=== PATIENT | female | born 1985 | race Caucasian/White ===

== ENCOUNTER 2021-07-11 17:18 | Emergency (ER) | payer OTHER, SELFPAY ==
[2021-07-11 17:28] VITALS: BP 131/85; PULSE 89; RESP 16; TEMP 36.4; O2SAT 100
--- NOTE | 2021-07-11 17:29 | ED.URI ---
HPI - URI/Sore Throat General Chief Complaint: Upper Respiratory Infection Stated Complaint: Cough/Chest Congestion Time Seen by Provider: 07/11/21 17:29 Source: patient and RN notes reviewed History of Present Illness HPI Narrative: Patient is a 36-year-old female who presents the urgent care with complaints of chest congestion and cough. Patient states the cough is keeping her up at night and is mostly nonproductive. Patient states symptoms started on Thursday and she has been fever free since Thursday. Patient also reports of a runny nose and intermittent coughing fits. Patient has been taking TheraFlu and DayQuil/NyQuil for her symptoms. Patient has been Covid vaccinated and denies of any recent exposures. No other acute complaints. No acute distress noted. Patient read the plan of care. Some parts of this dictation were generated by voice recognition software and may contain typographical and/or grammatical inaccuracies. Related Data Allergies Allergy/AdvReac Type Severity Reaction Status Date / Time No Known Allergies Allergy Verified 07/11/21 17:37 Review of Systems Review of Systems: CONSTITUTIONAL: Denies fever, chills, or sweats. EYES: Denies visual changes, redness, or discharge. ENT: Reports of rhinorrhea CARDIOVASCULAR: Denies chest pain, palpitations, or edema. RESPIRATORY: Reports of deep mostly nonproductive cough with coughing fits and chest congestion GASTROINTESTINAL: Denies abdominal pain, nausea, vomiting, or diarrhea. GENITOURINARY: Denies dysuria or hematuria. SKIN: Denies rash or itching. MUSCULOSKELETAL: Denies back pain, joint pain, or myalgia. NEUROLOGIC: Denies headache, numbness, or weakness. All other systems reviewed are negative, except as documented in HPI. PMFSH Comments At the time of my signature, I reviewed and agree with the nursing past medical, surgical, social, and family history. There is no relevant family history pertinent to the patient complaint. Exam Narrative: GENERAL: This is a well-nourished, well-developed patient, in no apparent distress. HEAD: normocephalic, atraumatic. EYES: PERRL. Sclera clear/white. Vision is grossly intact. EARS: External ears normal, auditory canals clear and without drainage, TMs normal without perforation. Hearing grossly intact. NOSE: External nose normal with no obvious nasal discharge, nares without redness, clear rhinorrhea. THROAT: Mucous membranes moist, posterior pharynx clear. Mild postnasal drainage NECK: Neck supple CARDIOVASCULAR: Regular rate and rhythm without murmurs, gallops, or rubs. RESPIRATORY: Harsh cough noted on exam, clear to auscultation. Breath sounds equal bilaterally. No wheezes, rales, or rhonchi. SKIN: warm, intact with no suspicious lesions or rash, good texture and turgor. NEURO: awake, alert, and oriented to person, place and time. There were no obvious focal neurologic abnormalities. EXTREMITIES: No clubbing, cyanosis, or edema. Course Vital Signs Vital signs: Vital Signs Temperature 97.6 F 07/11/21 17:28 Pulse Rate 89 07/11/21 17:28 Respiratory Rate 16 07/11/21 17:28 Blood Pressure 131/85 07/11/21 17:28 Pulse Oximetry 100 07/11/21 17:28 Temperature 97.6 F 07/11/21 17:28 Pulse Rate 89 07/11/21 17:28 Respiratory Rate 16 07/11/21 17:28 Blood Pressure 131/85 07/11/21 17:28 Pulse Oximetry 100 07/11/21 17:28 Reviewed MDM - URI/Sore Throat MDM Narrative Medical decision making narrative: Advised the patient to complete the oral steroid regimen as prescribed. Be sure to eat and drink with the medication. Use the cough syrup prior to bedtime as needed. May use Tessalon Perles during the day as needed for nonproductive cough. Continue daily antihistamine such as Claritin or Zyrtec in conjunction with Flonase nasal spray. If you develop any increase in symptoms associated with difficulty breathing or chest pain?go to the emergency room. Follow-up with your PCP within 2 to 5 days
== END 2021-07-11 17:56 | disposition home or self-care (01) ==
PROVIDERS: Emergency Provider Nurse Practitioner Family
DX: J40 Bronchitis, not specified as acute or chronic (principal)
CPT/HCPCS: 99213; G0463

== ENCOUNTER 2022-03-21 17:52 | Emergency (ER) | payer OTHER, SELFPAY ==
--- NOTE | 2022-03-21 17:53 | ED.SKABFB ---
HPI - Skin/Abscess/Foreign Bdy General Chief complaint: Skin/Abscess/Foreign Body Stated complaint: Rash Time Seen by Provider: 03/21/22 17:53 Source: patient and RN notes reviewed History of Present Illness HPI narrative: Patient is a 37-year-old female who presents the urgent care with complaints of a rash that started last night. Patient states that she works for [employer] and believes she may have gotten into something. Patient states that it has been worse since she has been out in the heat all day. States that she is use the triamcinolone cream 1 time, since picking to her PCP today, and has not taken any antihistamines for her itch. States that it started on the arms on her right hand and is now on the buttocks and back. No other acute complaints. No acute distress noted. Patient aware of the plan of care. Some parts of this dictation were generated by voice recognition software and may contain typographical and/or grammatical inaccuracies. Related Data Home Medications Medication Instructions Recorded Confirmed ibuprofen 800 mg tablet 800 mg PO Q6H PRN Migraine Headache 03/21/22 03/21/22 oxybutynin chloride 5 mg tablet 5 mg PO DAILY 03/21/22 03/21/22 triamcinolone acetonide 0.1 % 1 applic topical TID 03/21/22 03/21/22 topical cream venlafaxine 75 mg tablet 75 mg PO BID 03/21/22 03/21/22 Allergies Allergy/AdvReac Type Severity Reaction Status Date / Time latex Allergy Swelling Verified 03/21/22 18:09 Review of Systems Review of Systems: CONSTITUTIONAL: Denies fever, chills, or sweats. EYES: Denies visual changes, redness, or discharge. ENT: Denies rhinorrhea, congestion, sore throat, or otalgia. CARDIOVASCULAR: Denies chest pain, palpitations, or edema. RESPIRATORY: Denies cough or dyspnea. GASTROINTESTINAL: Denies abdominal pain, nausea, vomiting, or diarrhea. GENITOURINARY: Denies dysuria or hematuria. SKIN: Reports of an itchy rash to bilateral arms, right hand, back and buttocks MUSCULOSKELETAL: Denies back pain, joint pain, or myalgia. NEUROLOGIC: Denies headache, numbness, or weakness. All other systems reviewed are negative, except as documented in HPI. PMFSH Comments At the time of my signature, I reviewed and agree with the nursing past medical, surgical, social, and family history. There is no relevant family history pertinent to the patient complaint. Exam Narrative: GENERAL: This is a well-nourished, well-developed patient, in no apparent distress. HEAD: normocephalic, atraumatic. EYES: PERRL. Sclera clear/white. Vision is grossly intact. EARS: External ears normal NOSE: External nose normal with no obvious nasal discharge, nares without redness, no rhinorrhea. THROAT: Mucous membranes moist NECK: Neck supple SKIN: Scattered papular/vesicular erythemic dermatitis noted to bilateral arms, right hand, diffuse throughout the back and upper buttocks NEURO: awake, alert, and oriented to person, place and time. There were no obvious focal neurologic abnormalities. EXTREMITIES: No clubbing, cyanosis, or edema. Course Course Level of Care: Express Care Visit Vital Signs Vital signs: Vital Signs Temperature 97.8 F 03/21/22 17:54 Pulse Rate 71 03/21/22 17:54 Respiratory Rate 16 03/21/22 17:54 Blood Pressure 125/73 03/21/22 17:54 Pulse Oximetry 100 03/21/22 17:54 Oxygen Delivery Room Air 03/21/22 17:54 Temperature 97.8 F 03/21/22 18:11 Pulse Rate 71 03/21/22 18:11 Respiratory Rate 16 03/21/22 18:11 Blood Pressure 125/73 03/21/22 18:11 Pulse Oximetry 100 03/21/22 18:11 Oxygen Delivery Room Air 03/21/22 18:11 Reviewed MDM - Skin/Abscess/Foreign Bdy MDM Narrative Medical decision making narrative: Advised the patient to continue the triamcinolone as prescribed from her PCP. Be aware that being in the heat or hot shower will exacerbate the itch and the rash. Take a daily antihistamine such as Zyrtec or Claritin and use Benadryl as needed for itch. C
[2022-03-21 17:54] VITALS: BP 125/73; PULSE 71; RESP 16; TEMP 36.6; O2SAT 100
[2022-03-21 18:11] VITALS: BP 125/73; PULSE 71; RESP 16; TEMP 36.6; O2SAT 100
== END 2022-03-21 18:27 | disposition home or self-care (01) ==
PROVIDERS: Emergency Provider Nurse Practitioner Family
DX: L25.9 Unspecified contact dermatitis, unspecified cause (principal); F41.9 Anxiety disorder, unspecified; F32.A Depression, unspecified
CPT/HCPCS: 99213; G0463

== ENCOUNTER 2022-05-09 16:47 | Emergency (ER) | payer OTHER, SELFPAY ==
[2022-05-09 16:53] VITALS: BP 132/86; PULSE 87; RESP 16; TEMP 36.5; O2SAT 100
--- NOTE | 2022-05-09 17:13 | ED.GENADULT ---
HPI - General Adult General Chief complaint: Neck Pain/Injury Stated complaint: neck pain Time Seen by Provider: 05/09/22 17:16 Source: patient Mode of arrival: ambulatory Limitations: no limitations History of Present Illness HPI narrative: 37 y/o female presented for c/o left neck pain x2 days. Pain is at the base of the skul and is tender to touch. Denies known injury. 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 Pain worse with movement of neck. History of spinal fusion one year ago. Denies radiating pain down arm, numbness, tingling or weakness to the arm. Has been taking ibuprofen 800mg for pain and using heat. Related Data Home Medications Medication Instructions Recorded Confirmed oxybutynin chloride 5 mg tablet 5 mg PO DAILY 03/21/22 03/21/22 triamcinolone acetonide 0.1 % 1 applic topical TID 03/21/22 03/21/22 topical cream [id number] tablet 05/09/22 50 mg-325 mg-40 mg tablet famotidine 20 mg tablet mg 05/09/22 hydroxyzine HCl 10 mg tablet mg 05/09/22 ibuprofen 800 mg tablet mg 05/09/22 venlafaxine 150 mg mg PO 05/09/22 capsule,extended release 24 hr Allergies Allergy/AdvReac Type Severity Reaction Status Date / Time latex Allergy Swelling Verified 05/09/22 16:59 Review of Systems Review of Systems: CONSTITUTIONAL: Denies body aches, fever, chills EYES: Denies visual changes ENT: Denies rhinorrhea, congestion CARDIOVASCULAR: Denies chest pain, palpitations, or edema. RESPIRATORY: Denies cough or dyspnea. GASTROINTESTINAL: Denies abdominal pain, nausea, vomiting, or diarrhea. SKIN: Denies rash, itching, or wounds. MUSCULOSKELETAL: Reports neck pain NEUROLOGIC: Denies headache, numbness, tingling, or weakness. All systems reviewed & are unremarkable except as noted in HPI and below PMFSH Comments At time of signature, I have reviewed and agree with nursing past medical, surgical, social and family history unless otherwise noted. Please see nursing chart for further information. There is no relevant family history pertinent to the presenting complaint Exam Narrative: GENERAL: Well-appearing CHEST: Speaks in full sentences. No respiratory distress. HEART: Regular rate and rhythm. Normal and equal peripheral pulses. EXTREMITIES: BUEs with normal strength and sensation, limited range of motion to neck. Left neck at base of skull tender with palpation. No open wounds. Pulse palpable and equal bilaterally, skin warm, dry, pink. Capillary refill less than 3 seconds. SKIN: Warm, dry, no rash. NEURO: Alert and oriented x3. PSYCH: Normal mood and affect Course Course Emergency Course: Patient is aware of diagnosis, understands and agrees to treatment plan. Anticipatory guidance given. Patient agrees to follow-up as directed and is aware of reasons to seek care at the emergency department. Portions of this record may have been created with voice recognition software Level of Care: Express Care Visit Vital Signs Vital signs: Vital Signs Temperature 97.7 F 05/09/22 16:53 Pulse Rate 87 05/09/22 16:53 Respiratory Rate 16 05/09/22 16:53 Blood Pressure 132/86 05/09/22 16:53 Pulse Oximetry 100 05/09/22 16:53 Oxygen Delivery Room Air 05/09/22 16:53 Temperature 97.7 F 05/09/22 16:53 Pulse Rate 87 05/09/22 16:53 Respiratory Rate 16 05/09/22 16:53 Blood Pressure 132/86 05/09/22 16:53 Pulse Oximetry 100 05/09/22 16:53 Oxygen Delivery Room Air 05/09/22 16:53 Reviewed Medical Decision Making MDM Narrative Medical decision making narrative: Advised supportive measures, she states she has a previous Rx for cyclobenzaprine and will resume as directed. Reviewed signs/symptoms to go to the ER. Pt is appropriate for outpt treatment and f/u. Differential Diagnosis Differential Diagnosis: Neck strain, cervical spondylosis, stenosis, discitis, cervical radiculopathy Vital Signs Vi
== END 2022-05-09 17:30 | disposition home or self-care (01) ==
PROVIDERS: Emergency Provider Nurse Practitioner Family
DX: S16.1XXA Strain of muscle, fascia and tendon at neck level, initial encounter (principal); Z98.1 Arthrodesis status
CPT/HCPCS: 99213; G0463

== ENCOUNTER 2022-08-06 16:43 | Emergency (ER) | payer OTHER, SELFPAY ==
[2022-08-06 16:51] VITALS: BP 133/79; PULSE 82; RESP 16; TEMP 36.6; O2SAT 100
--- NOTE | 2022-08-06 19:22 | ED.CHESTPAIN ---
HPI - Chest Pain General Chief Complaint: Chest Pain Stated Complaint: left side hurts Source: patient, RN notes reviewed and old records reviewed Mode of arrival: ambulatory Limitations: no limitations History of Present Illness HPI narrative: 37 year old female who p presents to Express Care with complaints of lifting something at work today and felt pop to left lower rib this afternoon. Patient states it hurts to take a deep breath and patient reports reports pain to lateral aspect of her chest with movement of her left arm. Patient reports that her pain is a 8/10 described as aching and soreness, aggravated by changing positions coughing and deep breathing. Patient has not taken any OTC medications prior to arrival, refuses chest x-ray. MD complaint: other (left chest wall pain) Onset (ago): hour(s) (this afternoon) Treatment prior to arrival: none Related Data Home Medications Medication Instructions Recorded Confirmed oxybutynin chloride 5 mg tablet 5 mg PO DAILY 03/21/22 08/11/22 famotidine 20 mg tablet 20 mg PO BID 05/09/22 08/11/22 hydroxyzine HCl 10 mg tablet 10 mg PO DAILY 05/09/22 08/11/22 ibuprofen 800 mg tablet 800 mg PO Q8-10H PRN Pain 05/09/22 08/11/22 venlafaxine 150 mg 150 mg PO DAILY 05/09/22 08/11/22 capsule,extended release 24 hr aripiprazole 5 mg tablet 5 mg PO DAILY 08/06/22 08/11/22 zonisamide 100 mg capsule 100 mg PO HS PRN Sleep 08/06/22 08/11/22 Allergies Allergy/AdvReac Type Severity Reaction Status Date / Time latex Allergy Swelling Verified 08/11/22 15:51 Review of Systems Review of Systems: CONSTITUTIONAL: Denies fever, chills, or sweats. EYES: Denies visual changes, redness, or discharge. ENT: Denies rhinorrhea, congestion, sore throat, or otalgia. CARDIOVASCULAR: Reports left sided chest wall pain, no palpitations, or edema. RESPIRATORY: Denies cough or dyspnea. GASTROINTESTINAL: Denies abdominal pain, nausea, vomiting, or diarrhea. GENITOURINARY: Denies dysuria or hematuria. SKIN: Denies rash or itching. MUSCULOSKELETAL: Denies back pain, joint pain, or myalgia. NEUROLOGIC: Denies headache, numbness, or weakness. PSYCHIATRIC: Reports history of anxiety or depression. All systems reviewed & are unremarkable except as noted in HPI and below PMFSH Past Medical History Medical History (Updated 08/12/22 @ 20:43 by Lucy Cui NP) Anxiety Bladder problem Hx of migraines Social History Social History (Updated 08/12/22 @ 20:43 by Lucy Cui NP) Smoking status: Never smoker Alcohol intake: unknown Substance use type: does not use Gender identity (if verbalized by the patient): Female Comments At time of signature, agree with nursing past medical, surgical, social and family history. There is no relevant family history pertinent to the presenting complaint Exam Narrative: GENERAL: Well-appearing, well-nourished, and in no acute distress. HEAD: Normocephalic, atraumatic. EYES: PERRLA and EOMI. ENT: Nares clear, no rhinorrhea or epistaxis. Mucous membranes moist.TM's normal with good light reflex, throat pink with no lesions or exudates. NECK: Supple.no lymphadenopathy CHEST: Clear to auscultation. No respiratory distress. some left lateral chest soreness with movement and coughing and deep breathing denies any shortness of breath with SAO2 100% on room air HEART: Regular rate and rhythm. No murmur heard. Normal peripheral pulses. ABDOMEN: Soft, nontender, nondistended, normal active bowel sounds. EXTREMITIES: Normal range of motion. No edema. SKIN: Warm, dry, no rash. NEURO: No focal deficits. Alert and oriented x3. Course Course Emergency Course: Patient is aware of diagnosis, understands and agrees to treatment plan.? Anticipatory guidance given.? Patient agrees to follow-up as directed and is aware of reasons to seek care at the emergency department. Portions of this record may have been created with voice recognition software Level of Care: PT PAL
== END 2022-08-06 19:32 | disposition home or self-care (01) ==
PROVIDERS: Emergency Provider Registered Nurse
DX: R07.89 Other chest pain (principal); F41.9 Anxiety disorder, unspecified
CPT/HCPCS: 99213; G0463

== ENCOUNTER 2022-08-11 15:35 | Emergency (ER) | payer OTHER, SELFPAY ==
[2022-08-11 15:46] VITALS: BP 117/78; PULSE 78; RESP 20; TEMP 36.9; O2SAT 100
--- NOTE | 2022-08-11 16:01 | ED.URI ---
HPI - URI/Sore Throat General Chief Complaint: Upper Respiratory Infection Stated Complaint: sore throat fatigue Time Seen by Provider: 08/11/22 16:10 Source: patient and RN notes reviewed Mode of arrival: ambulatory Limitations: no limitations History of Present Illness HPI Narrative: 37-year-old female presents with concern for sore throat, fatigue, mild cough that started yesterday. Reports trouble staying awake at work today. Reports her daughter had influenza a and slept in her bed. MD elicited complaint: sore throat Related Data Home Medications Medication Instructions Recorded Confirmed oxybutynin chloride 5 mg tablet 5 mg PO DAILY 03/21/22 08/11/22 famotidine 20 mg tablet 20 mg PO BID 05/09/22 08/11/22 hydroxyzine HCl 10 mg tablet 10 mg PO DAILY 05/09/22 08/11/22 ibuprofen 800 mg tablet 800 mg PO Q8-10H PRN Pain 05/09/22 08/11/22 venlafaxine 150 mg 150 mg PO DAILY 05/09/22 08/11/22 capsule,extended release 24 hr aripiprazole 5 mg tablet 5 mg PO DAILY 08/06/22 08/11/22 zonisamide 100 mg capsule 100 mg PO HS PRN Sleep 08/06/22 08/11/22 Allergies Allergy/AdvReac Type Severity Reaction Status Date / Time latex Allergy Swelling Verified 08/11/22 15:51 Review of Systems Review of Systems: CONSTITUTIONAL: Reports malaise, fatigue EYES: Denies visual changes, redness, or discharge. ENT: Reports rhinorrhea, congestion, sore throat. Denies sinus pain, otalgia CARDIOVASCULAR: Denies chest pain, palpitations, or edema. RESPIRATORY: Reports cough. Denies dyspnea. GASTROINTESTINAL: Denies abdominal pain, nausea, vomiting, diarrhea SKIN: Denies rash or itching. MUSCULOSKELETAL: Denies myalgia. NEUROLOGIC: Denies headache. All systems reviewed & are unremarkable except as noted in HPI and below PMFSH Comments At time of signature, agree with nursing past medical, surgical, social and family history. There is no relevant family history pertinent to the presenting complaint Exam Narrative: GENERAL: Well-appearing, well-nourished, and in no acute distress. HEAD: Normocephalic EYES: PERRLA, conjunctivae clear ENT: Nares clear, clear discharge. Mucous membranes moist. TM pearly hanna with sharp light reflex bilaterally; no tragal tenderness. Oropharynx mildly erythematous without lesions. Tonsils not enlarged and without exudate, no drooling, no hoarseness, no trismus, uvula midline. NECK: Supple. No lymphadenopathy CHEST: Clear to auscultation, breath sounds equal. No wheezing, rhonchi, rales, or stridor. No respiratory distress, speaks in full sentences. HEART: Regular rate and rhythm. No murmur heard. SKIN: Warm, dry, no rash. NEURO: Alert and oriented x3. PSYCH: Normal mood and affect Course Course Emergency Course: Patient is aware of diagnosis, understands and agrees to treatment plan. Anticipatory guidance given. Patient agrees to follow-up as directed and is aware of reasons to seek care at the emergency department. Portions of this record may have been created with voice recognition software Level of Care: Express Care Visit Vital Signs Vital signs: Vital Signs Temperature 98.4 F 08/11/22 15:46 Pulse Rate 78 08/11/22 15:46 Respiratory Rate 20 08/11/22 15:46 Blood Pressure 117/78 08/11/22 15:46 Pulse Oximetry 100 08/11/22 15:46 Oxygen Delivery Room Air 08/11/22 15:46 Temperature 98.4 F 08/11/22 15:46 Pulse Rate 78 08/11/22 15:46 Respiratory Rate 20 08/11/22 15:46 Blood Pressure 117/78 08/11/22 15:46 Pulse Oximetry 100 08/11/22 15:46 Oxygen Delivery Room Air 08/11/22 15:46 Reviewed. MDM - URI/Sore Throat MDM Narrative Medical decision making narrative: Differential diagnosis considered: Alvarez virus, strep pharyngitis, allergic rhinitis, upper respiratory tract infection, sinusitis, rhinosinusitis, nasopharyngitis. viral pharyngitis, otitis media, otitis externa, pneumonia, bronchitis, viral cough syndrome, viral syndrome, and influenza. Exam findings sh
== END 2022-08-11 16:45 | disposition home or self-care (01) ==
PROVIDERS: Emergency Provider Nurse Practitioner
DX: J11.1 Influenza due to unidentified influenza virus with other respiratory manifestations (principal); Z20.828 Contact with and (suspected) exposure to other viral communicable diseases; F41.9 Anxiety disorder, unspecified; F32.A Depression, unspecified; Z86.16 Personal history of COVID-19
CPT/HCPCS: 87804; 99213; G0463

== ENCOUNTER 2022-08-14 17:05 | Emergency (ER) | payer OTHER, SELFPAY ==
[2022-08-14 17:40] VITALS: BP 127/79; PULSE 83; RESP 18; TEMP 36.2; O2SAT 100
--- NOTE | 2022-08-14 18:18 | ED.URI ---
HPI - URI/Sore Throat General Chief Complaint: Upper Respiratory Infection Stated Complaint: Cough Time Seen by Provider: 08/14/22 18:15 Source: patient, RN notes reviewed and old records reviewed Mode of arrival: ambulatory Limitations: no limitations History of Present Illness HPI Narrative: 37 year old female presents to [facility] care with complaints of persistent cough. Patient reports that she was seen in the clinic about 1-2 weeks ago for URI symptoms and was tested for influenza which was negative. She reports that she can't get rid of this cough,increased past 2-3 days. She states that she has been taking mucinex, cough drops just can't sleep, cough is worse when she lays down. MD elicited complaint: cough and nasal congestion Treatments prior to arrival: other (Mucinex and cough drops) Related Data Home Medications Medication Instructions Recorded Confirmed oxybutynin chloride 5 mg tablet 5 mg PO DAILY 03/21/22 08/11/22 famotidine 20 mg tablet 20 mg PO BID 05/09/22 08/11/22 hydroxyzine HCl 10 mg tablet 10 mg PO DAILY 05/09/22 08/11/22 ibuprofen 800 mg tablet 800 mg PO Q8-10H PRN Pain 05/09/22 08/11/22 venlafaxine 150 mg 150 mg PO DAILY 05/09/22 08/11/22 capsule,extended release 24 hr aripiprazole 5 mg tablet 5 mg PO DAILY 08/06/22 08/11/22 zonisamide 100 mg capsule 100 mg PO HS PRN Sleep 08/06/22 08/11/22 Allergies Allergy/AdvReac Type Severity Reaction Status Date / Time latex Allergy Swelling Verified 08/11/22 15:51 Review of Systems Review of Systems: CONSTITUTIONAL: Denies malaise, chills, sweats, or fever. EYES: Denies visual changes, redness, or discharge. ENT: Reports rhinorrhea, congestion, no sinus pain, otalgia and sore throat. CARDIOVASCULAR: Denies chest pain, palpitations, or edema. RESPIRATORY: Reports persistent cough.? Denies dyspnea. GASTROINTESTINAL: Denies abdominal pain, nausea, vomiting, diarrhea SKIN: Denies rash or itching. MUSCULOSKELETAL: Denies myalgia. NEUROLOGIC: Denies headache. All systems reviewed & are unremarkable except as noted in HPI and below PMFSH Past Medical History Medical History Acute cough Anxiety Bladder problem Hx of migraines Social History Social History Smoking status: Never smoker Alcohol intake: unknown Substance use type: does not use Gender identity (if verbalized by the patient): Female Comments At time of signature, agree with nursing past medical, surgical, social and family history. There is no relevant family history pertinent to the presenting complaint Exam Narrative: GENERAL: Well-appearing, well-nourished, and in no acute distress. HEAD: Normocephalic EYES: PERRLA, conjunctivae clear ENT: Nares clear, turbinates edematous and erythematous, clear to yellow discharge. Mucous membranes moist. TM pearly hanna with dull light reflex bilaterally; no tragal tenderness. Oropharynx erythematous without lesions. Tonsils not enlarged and without exudate, no drooling, no hoarseness, no trismus, uvula midline. NECK: Supple. No lymphadenopathy CHEST: Clear to auscultation, breath sounds equal. No wheezing, rhonchi, rales, or stridor. No respiratory distress, speaks in full sentences.cough, SAO2 100% on room air HEART: Regular rate and rhythm. No murmur heard. SKIN: Warm, dry, no rash. NEURO: Alert and oriented x3. PSYCH: Normal mood and affect Course Course Emergency Course: Patient is aware of diagnosis, understands and agrees to treatment plan.? Anticipatory guidance given.? Patient agrees to follow-up as directed and is aware of reasons to seek care at the emergency department. Portions of this record may have been created with voice recognition software Level of Care: Express Care Visit Vital Signs Vital signs: Vital Signs Temperature 36.2 C L 08/14/22 17:40 Pulse Rate 83 08/14/22 17:
== END 2022-08-14 18:33 | disposition home or self-care (01) ==
PROVIDERS: Emergency Provider Registered Nurse
DX: J06.9 Acute upper respiratory infection, unspecified (principal); R05.1 Acute cough; F41.9 Anxiety disorder, unspecified
CPT/HCPCS: 99213; G0463